=== PATIENT | female | born 1945 | race Caucasian/White ===

== ENCOUNTER 2017-06-09 11:58 | Emergency (ER) | payer OTHER ==
[~2017-06-09] VITALS: Ht 162.6 cm; Wt 81.5 kg
[~2017-06-09 11:58] MED LIST: ALBU0.086 INH; ENAL20TA PO; ESTR42.5V PV; GABA300C3 PO; HYDR-3533 PO; METO100T PO; OMEP20TA39 PO; SERT-129 PO; SPIRCAP INH; SYMB160A INH; TRAZ50TA4 PO; VITA200017 PO; ZOLP10TA3 PO
[2017-06-09 12:01] VITALS: BP 126/68; PULSE 108; RESP 16; TEMP 98.9; O2SAT 96
--- NOTE | 2017-06-09 12:29 | PD ---
HPI Chief Complaint: Complaint Time Seen by Provider: 12:19 Travel History International Travel<30 days: No Contact w/Intl Traveler<30days: No Traveled to known affect area: No History of Present Illness HPI This is a 72-year-old female who presents to the emergency department with 1 week of diarrhea, constant, having 10 episodes of loose stools per day associated with a small amount of blood, bright red recently. She says in the setting of this she is developed urinary retention. She self catheterizes and she has not been able to catheterize herself in 2 days. She has been making some urine but very little. She feels some pressure in her lower abdomen. She does say that she has had a fever up to 103 2 days ago. She denies any recent antibiotic use or travel. She says she is usually constipated. She has a history of a colon resection and has had 2 surgeries in the setting of bowel obstruction. She is having no vomiting PFSH Past Medical History Arthritis: Yes Asthma: Yes Heart Rhythm Problems: No Cancer: No Cardiovascular Problems: No High Cholesterol: Yes Chest Pain: Yes (occasionally) Congestive Heart Failure: No COPD: Yes Diabetes: No Diminished Hearing: No Endocrine: No Gastrointestinal Disorders: Yes (WHEAT'S ESOPH.) Genitourinary: No Hepatitis: No Hiatal Hernia: No Hypertension: Yes Immune Disorder: No Implanted Vascular Access Dvce: Yes Medical other: Yes (pt states she is not able to empty bladder completely does self cathes) Musculoskeletal: No Neurologic: No Psychiatric: Yes (depression) Reproductive: No Respiratory: Yes (copd asthma recent respiratory infection) Immunizations Current: Yes Sleep Apnea: Yes Thyroid Disease: No Tetanus Vaccination: Unknown Influenza Vaccination: Yes ?: Not Menopausal: Yes Past Surgical History Abdominal Surgery: Yes (bowel blockage repair lap elena bowel resection) AICD: No Cardiac Surgery: No Cholecystectomy: Yes Ear Surgery: No Endocrine Surgery: No Eye Surgery: No Genitourinary Surgery: No Gynecologic Surgery: Yes (hysterectomy) Hysterectomy: Yes Joint Replacement: Yes (nhan shoulders) Oral Surgery: Yes (TONSILLECTOMY) Pacemaker: No Thoracic Surgery: No Tonsillectomy: Yes Other Surgery: Yes Social History Alcohol Use: No Tobacco Use: No Substance Use: No Allergies-Medications (Allergen,Severity, Reaction): Coded Allergies: diatrizoate meglumine (Unverified Allergy, Severe, HYPERTENSION, 06/09/17) pt stated she has no problem now gadobenic acid (Unverified Allergy, Severe, HYPERTENSION, 06/09/17) pt stated she has no problem now gadodiamide (Unverified Allergy, Severe, HYPERTENSION, 06/09/17) pt stated she has no problem now gadoteridol (Unverified Allergy, Severe, HYPERTENSION, 06/09/17) pt stated she has no problem now iodixanol (Unverified Allergy, Severe, HYPERTENSION, 06/09/17) pt stated she has no problem now iohexol (Unverified Allergy, Severe, HYPERTENSION, 06/09/17) pt stated she has no problem now Reported Meds & Prescriptions Reported Meds & Active Scripts Active Reported Symbicort Inh (Budesonide/Formoterol Fumarate) 160-4.5 Mcg/Act Aero 2 Puff INH Q12HR Sertraline (Sertraline HCl) 50 Mg Tab 50 Mg PO DAILY Ambien (Zolpidem Tartrate) 10 Mg Tab 10 Mg PO HS PRN Trazodone (Trazodone HCl) 100 Mg Tablet 100 Mg PO HS Omeprazole 40 Mg Cap 40 Mg PO DAILY Gabapentin 400 Mg Cap 400 Cap PO BID Cholestyramine 4 Gm/Dose Powd 4 Gm PO BID 1 level scoopful of powder contains 4 grams of cholestyramine. Losartan (Losartan Potassium) 25 Mg Tab 25 Mg PO DAILY Diclofenac Sodium DR (Diclofenac Sodium) 75 Mg Tabdr 75 Mg PO BID Review of Systems Except as stated in HPI: all other systems reviewed are Neg Physical Exam Narrative GENERAL:Well appearing, no acute distress SKIN: Focused skin assessment warm and dry. HEAD: Atraumatic. Normocephalic. EYES: Pupils equal and round. No injection or drainage. ENT: Moist mucous membranes NECK: Trachea midline. CARDIOVASCULAR: Regular rate and rhythm. No murmur appreciated. RESPIRATORY: Clear to auscultation. Breath sounds equal bilaterally. GASTROINTESTINAL: Abdomen soft,mildly tender to palpation in the suprapubic region with no rebound/guarding. MUSCULOSKELETAL: No obvious deformities. NEUROLOGICAL: Awake and alert. No obvious cranial nerve deficits. Moving all extremities. PSYCHIATRIC: Appropriate mood and affect; insight and judgment normal. Data Data Last Documented VS Vital Signs Date Time Temp Pulse Resp B/P (MAP) Pulse Ox O2 Delivery O2 Flow Rate FiO2 06/09/17 12:21 19 06/09/17 12:01 98.9 108 126/68 (87) 96 Orders Orders Complete Blood Count With Diff (06/09/17 12:39) Comprehensive Metabolic Panel (06/09/17 12:39) Urinalysis - C+S If Indicated (06/09/17 12:39) ^ Insert Iv (06/09/17 12:39) Urinary Catheter Insert/Apply (06/09/17 12:39) Urine Culture (06/09/17 13:30) Ns (Bolus) Inj (06/09/17 14:45) Labs Laboratory Tests Test 06/09/17 13:10 06/09/17 13:30 White Blood Count 8.0 TH/MM3 Red Blood Count 4.17 MIL/MM3 Hemoglobin 13.2 GM/DL Hematocrit 37.0 % Mean Corpuscular Volume 88.7 FL Mean Corpuscular Hemoglobin 31.6 PG Mean Corpuscular Hemoglobin Concent 35.6 % Red Cell Distribution Width 13.5 % Platelet Count 186 TH/MM3 Mean Platelet Volume 8.3 FL Neutrophils (%) (Auto) 69.6 % Lymphocytes (%) (Auto) 15.6 % Monocytes (%) (Auto) 13.8 % Eosinophils (%) (Auto) 0.7 % Basophils (%) (Auto) 0.3 % Neutrophils # (Auto) 5.6 TH/MM3 Lymphocytes # (Auto) 1.2 TH/MM3 Monocytes # (Auto) 1.1 TH/MM3 Eosinophils # (Auto) 0.1 TH/MM3 Basophils # (Auto) 0.0 TH/MM3 CBC Comment DIFF FINAL Differential Comment Blood Urea Nitrogen 16 MG/DL Creatinine 0.98 MG/DL Random Glucose 111 MG/DL Total Protein 7.0 GM/DL Albumin 3.6 GM/DL Calcium Level 8.0 MG/DL Alkaline Phosphatase 66 U/L Aspartate Amino Transf (AST/SGOT) 23 U/L Alanine Aminotransferase (ALT/SGPT) 27 U/L Total Bilirubin 0.9 MG/DL Sodium Level 136 MEQ/L Potassium Level 3.5 MEQ/L Chloride Level 105 MEQ/L Carbon Dioxide Level 24.3 MEQ/L Anion Gap 7 MEQ/L Estimat Glomerular Filtration Rate 55 ML/MIN Urine Color YELLOW Urine Turbidity CLOUDY Urine pH 6.0 Urine Specific [place]ora 1.016 Urine Protein 100 mg/dL Urine Glucose (UA) NEG mg/dL Urine Ketones NEG mg/dL Urine Occult Blood MOD Urine Nitrite NEG Urine Bilirubin NEG Urine Urobilinogen LESS THAN 2.0 MG/DL Urine Leukocyte Esterase LARGE Urine RBC 74 /hpf Urine WBC /hpf Urine WBC Clumps MANY Urine Squamous Epithelial Cells 8 /hpf Urine Transitional Epithelial Cells 1 /hpf Urine Amorphous Sediment RARE Urine Bacteria MANY /hpf Microscopic Urinalysis Comment CULTURE INDICATED MDM Medical Decision Making Medical Screen Exam Complete: Yes Emergency Medical Condition: Yes Interpretation(s) Mild tachycardia No leukocytosis Electrolytes are reassuring Urinalysis demonstrates an infection Differential Diagnosis Gastroenteritis, colitis, electrolyte abnormality, acute urinary retention, urinary infection Narrative Course This is a 72-year-old female who self catheterizes who presents to the emergency department with increasing loose stools over the past week as well as difficulty self cathing. She was placed on a monitor and an IV was established. Labs are all reassuring with no evidence of dehydration. Urinalysis demonstrates a urinary tract infection. A Londono catheter was placed and she only had 300 cc of urine output. She was given a liter of IV hydration here in the emergency department. I do not think she requires an indwelling Londono catheter as she is urinating some on her own. We will remove the catheter and patient will be discharged on ciprofloxacin. Diagnosis Primary Impression: UTI (urinary tract infection) Qualified Codes: N30.00 - Acute cystitis without hematuria Patient Instructions: General Instructions Additional Instructions: If you develop fever, persistent vomiting, back pain, or inability to eat return to the emergency department as your urine infection may have progressed to a kidney infection. Complete your antibiotics as prescribed. Stay well hydrated with Gatorade or water. Followup with your primary care physician in 2-3 days if your symptoms have not resolved. Med/Other Pt SpecificInfo: Prescription(s) given Scripts Ciprofloxacin (Cipro) 250 Mg Tab 250 MG PO BID for Infection for 7 Days, #14 TAB 0 Refills Prov: Wendi Franklin MD 06/09/17 Disposition: 01 DISCHARGE HOME Condition: Stable Wendi Franklin MD Jun 09, 2017 12:29
[2017-06-09] MEDS ORDERED: SYMB160A INH (12:32)
[2017-06-09] MEDS ORDERED: LOSA25TA PO (12:32)
[2017-06-09] MEDS ORDERED: AMBI10TA PO (12:32)
[2017-06-09] MEDS ORDERED: GABA400C5 PO (12:32)
[2017-06-09] MEDS ORDERED: TRAZ100T10 PO (12:32)
[2017-06-09] MEDS ORDERED: OMEP40CA2 PO (12:32)
[2017-06-09] MEDS ORDERED: SERT-132 PO (12:32)
[2017-06-09] MEDS ORDERED: DICL75TA PO (12:32)
[2017-06-09] MEDS ORDERED: CHOL4POW3 PO (12:32)
[2017-06-09 14:08] LABS: AUTOMATED NEUTROPHIL # 5.6 TH/MM3 (1.8-7.7); BASOPHIL % 0.3 % (0.0-2.0); EOSINOPHIL # 0.1 TH/MM3 (0-0.4); EOSINOPHIL % 0.7 % (0.0-4.0); HEMOGLOBIN 13.2 GM/DL (11.6-15.3); LYMPH % 15.6 % (9.0-44.0); LYMPHOCYTE # 1.2 TH/MM3 (1.0-4.8); MEAN CELL VOLUME 88.7 FL (80.0-100.0); MEAN CORPUSCULAR HEMOGLOBIN 31.6 PG (27.0-34.0); MEAN CORPUSCULAR HGB CONC 35.6 % (32.0-36.0); MEAN PLATELET VOLUME 8.3 FL (7.0-11.0); MONO % 13.8 % (0.0-8.0); MONOCYTE # 1.1 TH/MM3 (0-0.9); NEUT % 69.6 % (16.0-70.0); PLATELET COUNT 186 TH/MM3 (150-450); RED BLOOD COUNT 4.17 MIL/MM3 (4.00-5.30); RED CELL DISTRIBUTION WIDTH 13.5 % (11.6-17.2)
[2017-06-09 14:20] LABS: AMORPHOUS SEDIMENT, URINE RARE; BACTERIA, URINE MANY /hpf; BILIRUBIN, URINE NEG (NEG); BLOOD, URINE MOD (NEG); GLUCOSE,URINE NEG (NEG); KETONE, URINE NEG (NEG); NITRITE,URINE NEG (NEG); SQUAMOUS EPITHELIAL CELL URINE 8 /hpf (0-5); TRANSITIONAL EPI CELLS, URINE 1 /hpf; URINE COLOR YELLOW (YELLW/STRAW); URINE LEUKOCYTE ESTERASE LARGE (NEG); WHITE BLOOD CELL CLUMPS MANY
[2017-06-09 14:25] LABS: ALBUMIN 3.6 GM/DL (3.4-5.0); ALT (GPT) 27 U/L (10-53); AST (GOT) 23 U/L (15-37); BICARBONATE 24.3 MEQ/L (21.0-32.0); BLOOD UREA NITROGEN 16 MG/DL (7-18); CHLORIDE 105 MEQ/L (98-107); CREATININE 0.98 MG/DL (0.50-1.00); GLOMERULAR FILTRATION RATE 55 ML/MIN (>89); GLUCOSE,RANDOM 111 MG/DL (74-106); SODIUM (NA) 136 MEQ/L (136-145)
[2017-06-09 14:27] LABS: ALKALINE PHOSPHATASE 66 U/L (45-117); TOTAL BILIRUBIN ADULT 0.9 MG/DL (0.2-1.0)
[2017-06-09] MEDS ORDERED: CIPR250T52 PO (14:44)
[2017-06-09] MEDS ORDERED: SODIUM CHLOR 0.9% 1000 ML INJ 1,000 ML IV SCH (14:45)
[2017-06-09 16:25] VITALS: BP 114/89
== END 2017-06-09 16:26 | disposition home or self-care (01) ==
LOC: NEPC 11:58
DX: N30.00 Acute cystitis without hematuria (principal); E78.00 Pure hypercholesterolemia, unspecified; I10 Essential (primary) hypertension; F32.9 Major depressive disorder, single episode, unspecified; J44.9 Chronic obstructive pulmonary disease, unspecified; K56.609 Unspecified intestinal obstruction, unspecified as to partial versus complete obstruction; A02.9 Salmonella infection, unspecified; R07.9 Chest pain, unspecified
CPT/HCPCS: 51702; 80053; 81001; 85025; 87077; 87086; 87186; 96360; 96361; 99284; J7030